=== PATIENT | female | born 1970 | race Caucasian/White ===

== ENCOUNTER 2018-09-30 14:17 | Emergency (ER) | payer OTHER ==
[~2018-09-30] VITALS: Ht 160 cm; Wt 70.3 kg
--- NOTE | 2018-09-30 14:23 | NUR ---
PT [id number] FOR SVT, ADENOSINE 6MG GIVEN. 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
--- NOTE | 2018-09-30 14:25 | NUR ---
TECH AT BEDSIDE FOR EKG.
--- NOTE | 2018-09-30 14:30 | NUR ---
SEEN AND EXAMINED BY DR. BACON.
--- NOTE | 2018-09-30 14:47 | NUR ---
OBSTETRICAL TECH AT BEDSIDE FOR XRAY.
[2018-09-30 14:50] LABS: BASOPHILS # (AUTO) 0.1 /CMM (0.0-0.2); BASOPHILS % (AUTO) 0.7 % (0.0-2.0); HEMATOCRIT 39 % (33-45); HEMOGLOBIN 13.3 g/dL (11.5-14.8); LYMPHOCYTES # (AUTO) 1.5 /CMM (0.8-4.8); LYMPHOCYTES % (AUTO) 19.5 % (20.0-44.0); MEAN CORPUSCULAR HGB CONC 34 g/dl (31.0-36.0); MEAN CORPUSCULAR VOLUME 90 fL (82-100); MONOCYTES # (AUTO) 0.5 /CMM (0.1-1.30); MONOCYTES % (AUTO) 6.6 % (2.0-12.0); NEUTROPHILS # (AUTO) 5.6 /CMM (1.8-8.9); NEUTROPHILS % (AUTO) 71.2 % (43.0-81.0); PLATELET COUNT (AUTO) 290 /CMM (150-450); RED BLOOD CELL COUNT(AUTO) 4.37 MIL/uL (4.0-5.2); WHITE BLOOD COUNT (AUTO) 7.9 K/uL (4.3-11.0)
[2018-09-30 15:01] LABS: CALCIUM, SERUM 8.5 mg/dL (8.5-10.1); CREATININE 0.9 mg/dL (0.6-1.3); POTASSIUM 3.8 mmol/L (3.5-5.1)
--- NOTE | 2018-09-30 15:39 | NUR ---
URINE SPECIMEN COLLECTED AND SENT TO LAB.
--- NOTE | 2018-09-30 16:20 | NUR ---
IV removed. Catheter intact and site benign. Pressure and 4x4 applied to site. No bleeding noted. Patient discharged to home in stable condition. Written and verbal after care instructions given. Patient verbalizes understanding of instruction.
[2018-09-30 16:21] VITALS: BP 108/69
== END 2018-09-30 16:22 | disposition home or self-care (01) ==
LOC: ER 14:20
DX: I47.1 Supraventricular tachycardia (principal); F32.9 Major depressive disorder, single episode, unspecified; F12.90 Cannabis use, unspecified, uncomplicated; Z60.2 Problems related to living alone
CPT/HCPCS: 36415; 71045-TC; 80048-TC; 84703-TC; 85025-TC

== ENCOUNTER 2023-03-02 15:35 | Emergency (ER) | payer OTHER ==
[~2023-03-02] VITALS: Ht 160 cm; Wt 69.4 kg
[2023-03-02] MEDS ORDERED: ADENOSINE 6 MG/2 ML VIAL ONE (16:07)
[2023-03-02] MEDS ORDERED: ADENOSINE 6 MG/2 ML VIAL IVP ONE (16:30)
[2023-03-02 16:32] LABS: BASOPHILS # (AUTO) 0.1 K/uL (0.0-0.2); BASOPHILS % (AUTO) 0.6 % (0.0-2.0); EOSINOPHILS # (AUTO) 0.2 K/uL (0.0-0.7); EOSINOPHILS % (AUTO) 1.6 % (0.0-6.0); HEMATOCRIT 39 % (33-45); HEMOGLOBIN 13.1 g/dL (11.5-14.8); LYMPHOCYTES # (AUTO) 2.1 K/uL (0.8-4.8); LYMPHOCYTES % (AUTO) 22.2 % (20.0-44.0); MEAN CORPUSCULAR HEMOGLOBIN 29 PG (26.0-33.0); MEAN CORPUSCULAR HGB CONC 34 g/dl (31.0-36.0); MEAN CORPUSCULAR VOLUME 86 fL (82-100); MONOCYTES # (AUTO) 0.6 K/uL (0.1-1.30); MONOCYTES % (AUTO) 6.5 % (2.0-12.0); NEUTROPHILS # (AUTO) 6.5 K/uL (1.8-8.9); NEUTROPHILS % (AUTO) 69.1 % (43.0-81.0); PLATELET COUNT (AUTO) 414 K/uL (150-450); RED BLOOD CELL COUNT(AUTO) 4.48 MIL/uL (4.0-5.2); WHITE BLOOD COUNT (AUTO) 9.5 K/uL (4.3-11.0)
[2023-03-02 16:50] LABS: CALCIUM, SERUM 9.5 mg/dL (8.5-10.1); CARBON DIOXIDE 24 mmol/L (21-32); CHLORIDE 105 mmol/L (98-107); GLUCOSE 150 mg/dL (74-106); POTASSIUM 3.6 mmol/L (3.5-5.1); SODIUM SERUM 138 mmol/L (136-145); UREA NITROGEN, BLOOD 16 mg/dL (7-18)
[2023-03-02 16:55] LABS: ALANINE AMINOTRANSFERASE 30 U/L (12-78); ALBUMIN 4.1 g/dL (3.4-5.0); ALKALINE PHOSPHATASE 70 U/L (46-116); ASPARTATE AMINOTRANSFERASE 21 U/L (15-37); BILIRUBIN,DIRECT 0.1 mg/dL (0.0-0.2); BILIRUBIN,TOTAL 0.4 mg/dL (0.2-1.0); TOTAL PROTEIN, SERUM 7.9 g/dL (6.4-8.2)
[2023-03-02] MEDS ORDERED: IV NS 0.9% 1,000 ML IV ONE (17:30)
[2023-03-02] MEDS ORDERED: IOHEXOL-350 100 ML VIAL IV ONE (17:53)
[2023-03-02] MEDS ORDERED: IV NS 0.9% 250 ML IV ONE (17:53)
[2023-03-02 19:02] VITALS: BP 112/89; O2SAT 99
[2023-03-02] MEDS ORDERED: ASPIRIN 325 MG TABLET ONE (19:44)
[2023-03-02] MEDS ORDERED: ASPIRIN 325 MG TABLET PO ONE (20:00)
== END 2023-03-02 20:28 | disposition left against medical advice (07) ==
LOC: ER 15:39
DX: I47.1 Supraventricular tachycardia (principal); R77.8 Other specified abnormalities of plasma proteins; F32.A Depression, unspecified
CPT/HCPCS: 99285; 96374; 71275; 71045; 96361; 93005 ×4; 85025; 80048; 80076; 85378; 36415; 84484 ×2; J0153; J7050; Q9967

== ENCOUNTER 2025-01-05 14:05 | Emergency (ER) | payer BC, OTHER ==
[~2025-01-05] VITALS: Ht 165.1 cm; Wt 77.6 kg
[2025-01-05] MEDS ORDERED: ADENOSINE 6 MG/2 ML VIAL ONE (14:12)
[2025-01-05] MEDS: ADENOSINE 6 MG/2 ML VIAL IVP ONE (14:27)
[2025-01-05] MEDS: IV NS 0.9% 1,000 ML BAG IV ONE (14:47)
[2025-01-05 14:52] LABS: PLATELET COUNT (AUTO) 388 K/uL (150-450); RED BLOOD CELL COUNT(AUTO) 4.80 MIL/uL (4.0-5.2); RED CELL DISTRIBUTION WIDTH 14.0 % (11.5-15.0); WHITE BLOOD COUNT (AUTO) 12.7 K/uL (4.3-11.0)
[2025-01-05 14:59] LABS: CALCIUM, SERUM 9.3 mg/dL (8.5-10.1); CREATININE 1.1 mg/dL (0.6-1.3); SODIUM SERUM 140.0 mmol/L (136-145); UREA NITROGEN, BLOOD 14.0 mg/dL (7-18)
[2025-01-05 16:15] VITALS: BP 101/64; TEMP 98; O2SAT 99
== END 2025-01-05 16:17 | disposition home or self-care (01) ==
LOC: ER 14:11
DX: I47.10 Supraventricular tachycardia, unspecified (principal); F32.A Depression, unspecified; Z86.79 Personal history of other diseases of the circulatory system; Z60.2 Problems related to living alone
CPT/HCPCS: 99291; 96374; 96361; 99152; 85025; 80048; 36415; 93005 ×2; J0153; J7030; G0500